=== PATIENT | female | born 1980 | race Caucasian/White ===

== ENCOUNTER 2019-09-23 19:37 | Emergency (ER) | payer OTHER, SELFPAY ==
[~2019-09-23] VITALS: Ht 175.3 cm; Wt 83.9 kg
[2019-09-23 20:09] VITALS: BP 132/78
--- NOTE | 2019-09-23 20:12 | NUR ---
PT TRIAGED AND SENT TO TENT
--- NOTE | 2019-09-23 21:18 | NUR ---
PT BROUGHT TO BED 07 FOR XRAY . Addendum: 09/23/19 at 2118 by [facility] O2 SATURATION AT 98%.
--- NOTE | 2019-09-24 00:16 | NUR ---
COVID SWAB COLLECTED AND SENT TO LAB.
--- NOTE | 2019-09-24 00:16 | NUR ---
Patient discharged with v/s stable. Written and verbal after care instructions given and explained. Patient alert, oriented and verbalized understanding of instructions. Ambulatory with steady gait. All questions addressed prior to discharge. ID band removed. Patient advised to follow up with PMD. Rx of NAPROSYN, AND GUAIATUSSIN given. Patient educated on indication of medication including possible reaction and side effects. Opportunity to ask questions provided and answered.
--- NOTE | 2019-09-24 00:16 | NUR ---
NO NURSING INTERVENTION ORDERED BY ERMD
--- NOTE | 2019-09-27 14:32 | NUR ---
PT POSITIVE FOR COVID-19. RESULTS-SENT TO INFECTION CONTROL AND HOUSE SUP
== END 2019-09-24 00:16 | disposition home or self-care (01) ==
LOC: MED 19:37 → EEVIPCON 19:37 → MED 09-24 00:16
DX: U07.1 COVID-19 (principal); R05 Cough; R53.1 Weakness; R51 Headache
CPT/HCPCS: 71045; 81025; 99284; Q0092; U0003; 99283

== ENCOUNTER 2020-04-18 16:05 | Emergency (ER) | payer OTHER, SELFPAY ==
[~2020-04-18] VITALS: Ht 157.5 cm; Wt 87.5 kg
[2020-04-18 16:13] VITALS: BP 131/82
[2020-04-18] MEDS: LIDOCAINE MPF 1% 10 MG/ML VIAL INJ ONE (16:37)
[2020-04-18] MEDS ORDERED: BACITRACIN OINT 500 UNITS/GM PKT TP ONE (16:48)
[2020-04-18 16:56] VITALS: BP 131/82
== END 2020-04-18 16:56 | disposition home or self-care (01) ==
LOC: MED 16:05
DX: S61.412A Laceration without foreign body of left hand, initial encounter (principal); W26.0XXA Contact with knife, initial encounter; Y93.89 Activity, other specified; Y92.090 Kitchen in other non-institutional residence as the place of occurrence of the external cause; Y99.8 Other external cause status
CPT/HCPCS: 12001; 99282; J2001

== ENCOUNTER 2021-02-24 19:00 | Emergency (ER) | payer MEDICAID, OTHER ==
[~2021-02-24] VITALS: Ht 154.9 cm; Wt 84.4 kg
[2021-02-24 19:12] VITALS: BP 135/79
[2021-02-24] MEDS ORDERED: KETOROLAC 30 MG/ML VIAL IM ONE (20:35)
[2021-02-24] MEDS ORDERED: LID5T TP (20:38)
[2021-02-24] MEDS ORDERED: CYCL-711 PO (20:38)
[2021-02-24] MEDS ORDERED: IBUP-2213 PO (20:38)
--- NOTE | 2021-02-24 20:58 | NUR ---
Patient discharged with v/s stable. Written and verbal after care instructions given and explained. Patient alert, oriented and verbalized understanding of instructions. Ambulatory with steady gait. All questions addressed prior to discharge. ID band removed. Patient advised to follow up with PMD. Rx of FLEXERIL, MOTRIN, AND LIDODERM PATCH given. Patient educated on indication of medication including possible reaction and side effects. Opportunity to ask questions provided and answered.
== END 2021-02-24 20:50 | disposition home or self-care (01) ==
LOC: MED 19:00
DX: S39.012A Strain of muscle, fascia and tendon of lower back, initial encounter (principal); R03.0 Elevated blood-pressure reading, without diagnosis of hypertension; Z79.899 Other long term (current) drug therapy; V89.2XXA Person injured in unspecified motor-vehicle accident, traffic, initial encounter; Y93.89 Activity, other specified; Y92.89 Other specified places as the place of occurrence of the external cause; Y99.8 Other external cause status
CPT/HCPCS: 96372; 99283; J1885